=== PATIENT | male | born 1990 | race Caucasian/White ===

== ENCOUNTER 2016-12-28 22:44 | Emergency (ER) | payer MEDICAID ==
[~2016-12-28] VITALS: Ht 167.6 cm; Wt 60.3 kg
[~2016-12-28 22:44] MED LIST: ALBU8.5H2 INH
[2016-12-28] MEDS ORDERED: ALBU8HFA4 INH (23:03)
[2016-12-29] MEDS ORDERED: HYDROCODONE/APAP 10-325 MG TABLET PO ONE
[2016-12-29] MEDS ORDERED: ONDANSETRON HCL 4 MG TABLET PO ONE
[2016-12-29] MEDS ORDERED: ONDANSETRON ODT 4 MG TAB.RAPDIS ONE (00:16)
[2016-12-29] MEDS ORDERED: HYDROCODONE/APAP 10-325 MG TABLET ONE (00:17)
[2016-12-29] MEDS ORDERED: ONDANSETRON HCL 4 MG TABLET ONE (00:18)
--- NOTE | 2016-12-29 01:11 | NUR ---
MSE COMPLETED, PT HAD NEHEMIAS BANDAGE PLACED TO LEFT ANKLE, CRUTCH TRAINING GIVEN AND CRUTCHES DISPENSED. PT D/C'D HOME, ACI/RX X1/[id number] NOTE GIVEN. PT DEMONSTARTED APPROPRIATE CRUTCH USE. PT TOOK ALL BELONGINGS, PT'S MOM PRESENT AND TO DRIVE.
[2016-12-29 01:15] VITALS: BP 135/92
== END 2016-12-29 01:16 | disposition home or self-care (01) ==
LOC: ER 22:45
DX: S93.402A Sprain of unspecified ligament of left ankle, initial encounter (principal); J45.909 Unspecified asthma, uncomplicated; K21.9 Gastro-esophageal reflux disease without esophagitis; F10.20 Alcohol dependence, uncomplicated; V49.9XXA Car occupant (driver) (passenger) injured in unspecified traffic accident, initial encounter; Y93.89 Activity, other specified; Y99.8 Other external cause status; Y92.89 Other specified places as the place of occurrence of the external cause
CPT/HCPCS: 73610; 99284; A4663; Q0162

== ENCOUNTER 2017-07-08 08:19 | Emergency (ER) | payer MEDICAID ==
[~2017-07-08] VITALS: Ht 167.6 cm; Wt 60.8 kg
[~2017-07-08 08:19] MED LIST changes: -ALBU8.5H2 INH; +ALBU8HFA4 INH
[2017-07-08] MEDS ORDERED: AZITHROMYCIN 250 MG TABLET PO ONE (08:45)
--- NOTE | 2017-07-08 08:53 | NUR ---
Patient discharged to home in stable conditon. Written and verbal after care instructions given to patient. Patient verbalizes understanding of instructions. Prescription for azithromycin & cough medicine with codein was given by MD with "Excuse for work." paper as well.
[2017-07-08] MEDS ORDERED: AZITHROMYCIN 250 MG TABLET ONE (09:03)
== END 2017-07-08 08:55 | disposition home or self-care (01) ==
LOC: ER 08:19
DX: J20.9 Acute bronchitis, unspecified (principal); K21.9 Gastro-esophageal reflux disease without esophagitis; J45.909 Unspecified asthma, uncomplicated
CPT/HCPCS: 99283; A4663; Q0144